=== PATIENT | female | born 1965 | race Hispanic/Latino ===

== ENCOUNTER → 2024-06-08 | Outpatient (CLI) | payer OTHER, SELFPAY ==
--- NOTE | 2024-06-08 08:57 | DI.RAD.S_ITS ---
PROCEDURE: XR KNEE LT 3V INDICATIONS: Knee pain TECHNIQUE: 3 views of the knee were acquired. COMPARISON: None. FINDINGS: Moderate degenerative changes of the left knee with joint space narrowing and osteophytes medial greater than patellofemoral greater than lateral compartments. No radiographic evidence of displaced fracture, dislocation, knee joint effusion or soft tissue foreign body. 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 Dictated by: Robert Cerda M.D. on 06/08/2024 at 12:06 Approved by: Robert Cerda M.D. on 06/08/2024 at 12:07
--- NOTE | 2024-06-08 08:57 | DI.RAD.S_ITS ---
PROCEDURE: XR HIP W PEL IF DONE LT 2V INDICATIONS: Left hip pain TECHNIQUE: 2 views of the hip were acquired. COMPARISON: None. FINDINGS / IMPRESSION: Mild degenerative changes of the bilateral hips with small osteophytes. No radiographic evidence of fracture, dislocation or high attenuation soft tissue foreign body. If symptoms persist or worsen, or there is high clinical suspicion of acute abnormality, MRI could be performed. Dictated by: Robert Cerda M.D. on 06/08/2024 at 9:59 Approved by: Robert Cerda M.D. on 06/08/2024 at 10:00
--- NOTE | 2024-06-08 09:07 | DI.MG.S_ITS ---
BILATERAL DIGITAL SCREENING MAMMOGRAM 3D/2D WITH CAD: 06/08/2024 CLINICAL: Routine screening. No prior exams were available for comparison. There are scattered areas of fibroglandular density (category b / 25%-50% glandular tissue). Current study was also evaluated with a Computer Aided Detection (CAD) system. No significant masses, calcifications, or other findings are seen in either breast. IMPRESSION: NEGATIVE There is no mammographic evidence of malignancy. A 1 year screening mammogram is recommended. Based on the Tyrer Cuzick model (a risk assessment model) the patient's lifetime risk is 8.8% and her 10 year risk is 3.2%. According to the ACR, ACS, and NCCN guidelines, an annual breast MRI exam along with mammogram is recommended if the patient's lifetime risk is 20% or greater. This exam was interpreted at Station ID: [id number]. NOTE: For mammograms, a report in lay terms will be sent to the patient. Approximately 15% of breast malignancies will not be visualized mammographically. In the management of a palpable breast mass, a negative mammogram must not discourage biopsy of a clinically suspicious lesion. Electronically Signed By: Kwabena maciel/pastor:06/14/2024 11:41:04 letter sent: Normal Exam ACR BI-RADS Category 1: Negative
[2024-06-08 10:09] LABS: Add Manual Diff / Slide Review NO; Basophils Absolute Auto 0 /uL (0-100); Basophils Percent Auto 0.8 % (0-2); Eosinophils Absolute Auto 0 /uL (0-450); Eosinophils Percent Auto 0.9 % (2-4); Hematocrit 34.4 % (36-46); Lymphocytes Absolute Auto 1600 /uL (1100-4500); Lymphocytes Percent Auto 29.7 % (25-40); Mean Corpuscular Hemoglobin 26.1 PG (26-34); Mean Corpuscular Volume 81.5 fL (80-100); Monocytes Absolute Auto 500 /uL (0-900); Monocytes Percent Auto 10.1 % (3-14); Neutrophils Absolute Auto 3100 /uL (1500-7000); Neutrophils Percent Auto 58.5 % (50-75); Platelet Count 286 X10^3/uL (150-400); Red Blood Cell Count 4.23 X10^6/uL (4.0-5.2); Red Cell Distribution Width 15.8 % (11.6-14.8); White Blood Cell Count 5.3 X10^3/uL (4.5-11.0)
[2024-06-08 10:22] LABS: Alanine Aminotransferase 29 IU/L (<35); Albumin 4.5 g/dL (3.5-5.0); Albumin Globulin Ratio 1.6 (1.0-2.8); Alkaline Phosphatase 85 U/L (38-126); Aspartate Aminotransferase 33 IU/L (14-36); BUN Creatinine Ratio 15.5 (6-22); Bilirubin Total 0.5 mg/dL (0.2-1.3); Blood Urea Nitrogen 9 mg/dL (7-17); Calcium 9.3 mg/dL (8.4-10.2); Carbon Dioxide 27 mmol/L (22-32); Chloride 102 mmol/L (98-107); Cholesterol 177 mg/dL (140-199); Estimated Glomerular Filt Rate > 60 mL/min (>60); Globulin 2.8 g/dL (1.7-4.1); Glucose 144 mg/dL (70-100); HDL Cholesterol 90 mg/dL (40-60); HEMOLYSIS < 15 (0-50); LDL Cholesterol Calculated 54 mg/dL (<100); Potassium 4.2 mmol/L (3.4-5.1); Sodium 137 mmol/L (137-145); Total Protein 7.3 g/dL (6.3-8.2); Triglycerides 164 mg/dL (35-150)
[2024-06-08 10:25] LABS: HEMOLYSIS < 15 (0-50); Iron 37 ug/dL (37-170)
[2024-06-08 10:37] LABS: Percent Iron Saturation 9 % (15-50); Total Iron Binding Capacity 434 ug/dL (265-497); Transferrin 350 mg/dL (206-381)
[2024-06-08 10:58] LABS: Ferritin 6 ng/mL (11-264); TSH w/ Reflex to FT4 0.93 uIU/mL (0.47-4.68)
[2024-06-08 11:33] LABS: Folate 9.1 ng/mL (2.76-20.0); Vitamin B12 > 1000 pg/mL (239-931)
[2024-06-09 15:35] LABS: Hemoglobin A1C% w Est Avg Glu 7.4 % (4.0-6.0)
== END ==
LOC: MAMMO 08:56
PROVIDERS: PCP Student in an Organized Health Care Education/Training Program; Referring Provider Student in an Organized Health Care Education/Training Program; Visit Provider Student in an Organized Health Care Education/Training Program
DX: M25.562 Pain in left knee (principal); M25.552 Pain in left hip; Z12.31 Encounter for screening mammogram for malignant neoplasm of breast; Z86.39 Personal history of other endocrine, nutritional and metabolic disease; Z98.84 Bariatric surgery status; R63.5 Abnormal weight gain
CPT/HCPCS: 36415; 73502; 73562; 77063; 77067; 80053; 80061; 82607; 82728; 82746; 83036; 83540; 83550; 84443; 85025

== ENCOUNTER → 2024-09-01 15:18 | Outpatient (CLI) | payer OTHER, SELFPAY ==
[2024-09-01 18:07] LABS: HEMOLYSIS < 15 (0-50)
[2024-09-01 18:10] LABS: HEMOLYSIS < 15 (0-50); Iron 53 ug/dL (37-170)
[2024-09-01 18:14] LABS: Basophils Absolute Auto 100 /uL (0-100); Basophils Percent Auto 1.1 % (0-2); Eosinophils Absolute Auto 0 /uL (0-450); Eosinophils Percent Auto 0.3 % (2-4); Hematocrit 40.6 % (36-46); Hemoglobin 13.1 g/dL (12.0-16.0); Lymphocytes Absolute Auto 2100 /uL (1100-4500); Lymphocytes Percent Auto 28.6 % (25-40); Mean Corpuscular HGB Conc 32.2 % (30-36); Mean Corpuscular Hemoglobin 30.2 PG (26-34); Mean Corpuscular Volume 93.8 fL (80-100); Monocytes Absolute Auto 600 /uL (0-900); Monocytes Percent Auto 7.8 % (3-14); Neutrophils Absolute Auto 4500 /uL (1500-7000); Neutrophils Percent Auto 62.2 % (50-75); Platelet Count 278 X10^3/uL (150-400); Red Blood Cell Count 4.33 X10^6/uL (4.0-5.2); Red Cell Distribution Width 21.2 % (11.6-14.8); White Blood Cell Count 7.2 X10^3/uL (4.5-11.0)
[2024-09-01 18:15] LABS: Add Manual Diff / Slide Review SLIDE REVIEW; Alanine Aminotransferase 35 IU/L (<35); Albumin 4.5 g/dL (3.5-5.0); Albumin Globulin Ratio 1.5 (1.0-2.8); Alkaline Phosphatase 89 U/L (38-126); Aspartate Aminotransferase 33 IU/L (14-36); BUN Creatinine Ratio 21.7 (6-22); Bilirubin Total 0.4 mg/dL (0.2-1.3); Blood Urea Nitrogen 18 mg/dL (7-17); Calcium 9.5 mg/dL (8.4-10.2); Carbon Dioxide 26 mmol/L (22-32); Chloride 105 mmol/L (98-107); Estimated Glomerular Filt Rate > 60 mL/min (>60); Globulin 3.1 g/dL (1.7-4.1); Glucose 113 mg/dL (70-100); Potassium 4.1 mmol/L (3.4-5.1); Sodium 138 mmol/L (137-145); Total Protein 7.6 g/dL (6.3-8.2)
[2024-09-01 18:24] LABS: Hemoglobin A1C% w Est Avg Glu 5.8 % (4.0-6.0); Percent Iron Saturation 21 % (15-50); Total Iron Binding Capacity 247 ug/dL (265-497); Transferrin 240 mg/dL (206-381)
[2024-09-01 18:36] LABS: Neutrophils Absolute Manual 4536 /uL (3000-5900); Total Cells Counted 100
[2024-09-01 18:37] LABS: Rouleaux 1+; Stomatocytes 1+
[2024-09-01 18:51] LABS: Ferritin 83 ng/mL (11-264)
== END ==
PROVIDERS: PCP Student in an Organized Health Care Education/Training Program; Referring Provider Student in an Organized Health Care Education/Training Program; Visit Provider Student in an Organized Health Care Education/Training Program
DX: E11.9 Type 2 diabetes mellitus without complications (principal); D64.9 Anemia, unspecified
CPT/HCPCS: 36415; 80053; 82728; 83036; 83540; 83550; 85007; 85025

== ENCOUNTER → 2024-11-17 09:17 | Outpatient (CLI) | payer OTHER, SELFPAY | PROVIDERS: PCP Student in an Organized Health Care Education/Training Program; Referring Provider Student in an Organized Health Care Education/Training Program; Visit Provider Student in an Organized Health Care Education/Training Program | DX: R00.2 Palpitations (principal) | CPT/HCPCS: 93246; 93248 ==

== ENCOUNTER → 2025-03-30 07:44 | Outpatient (CLI) | payer OTHER, SELFPAY ==
[2025-03-30 08:15] LABS: Add Manual Diff / Slide Review NO; Hematocrit 39.8 % (36-46); Hemoglobin 13.7 g/dL (12.0-16.0); Lymphocytes Absolute Auto 2100 /uL (1100-4500); Mean Corpuscular HGB Conc 34.3 % (30-36); Mean Corpuscular Hemoglobin 33.1 PG (26-34); Mean Corpuscular Volume 96.5 fL (80-100); Platelet Count 264 X10^3/uL (150-400)
[2025-03-30 08:20] LABS: Hemoglobin A1C% w Est Avg Glu 5.6 % (4.0-6.0)
[2025-03-30 08:33] LABS: Alanine Aminotransferase 34 IU/L (<35); Albumin 4.5 g/dL (3.5-5.0); Albumin Globulin Ratio 1.8 (1.0-2.8); Alkaline Phosphatase 62 U/L (38-126); Blood Urea Nitrogen 14 mg/dL (7-17); Calcium 9.2 mg/dL (8.4-10.2); Carbon Dioxide 29 mmol/L (22-32); Chloride 103 mmol/L (98-107); Estimated Glomerular Filt Rate > 60 mL/min (>60); Globulin 2.5 g/dL (1.7-4.1); Glucose 106 mg/dL (70-99); HEMOLYSIS < 15 (0-50); Potassium 4.3 mmol/L (3.4-5.1); Sodium 139 mmol/L (137-145); Total Protein 7.0 g/dL (6.3-8.2)
[2025-03-30 08:45] LABS: HEMOLYSIS < 15 (0-50); Iron 136 ug/dL (37-170)
[2025-03-30 09:00] LABS: Percent Iron Saturation 43 % (15-50); Total Iron Binding Capacity 313 ug/dL (265-497); Transferrin 269 mg/dL (206-381)
[2025-03-30 09:05] LABS: Ferritin 51 ng/mL (11-264)
== END ==
PROVIDERS: PCP Student in an Organized Health Care Education/Training Program; Referring Provider Student in an Organized Health Care Education/Training Program; Visit Provider Student in an Organized Health Care Education/Training Program
DX: D50.8 Other iron deficiency anemias (principal); E11.9 Type 2 diabetes mellitus without complications; Z86.39 Personal history of other endocrine, nutritional and metabolic disease
CPT/HCPCS: 36415; 80053; 82728; 83036; 83540; 83550; 85025

== ENCOUNTER → 2025-04-11 07:30 | Outpatient (CLI) | payer OTHER, SELFPAY ==
--- NOTE | 2025-04-11 07:32 | DI.NM.S_ITS ---
PROCEDURE: NM RYANN PERF SPECT REST & STR Rest and exercise myocardial perfusion SPECT with gated imaging and ejection fraction RADIOPHARMACEUTICAL: 12.3 mCi Tc-99m sestamibi IV at rest and 27.3 mCi Tc-99m sestamibi IV at peak exercise. A one day-protocol was performed. INDICATIONS: CHEST PAIN TECHNIQUE: Radiopharmaceutical was injected at peak stress test, and also at rest. SPECT images were obtained. SPECT myocardial perfusion images were displayed in short axis, horizontal long axis, and vertical long axis views. Gated images were reviewed using [employer] software. COMPARISON: None. CARDIAC STRESS: A standard Guillaume treadmill exercise tolerance test was performed by the patient under the supervision of an attending staff. The patient exercised for 7 minutes and 33 seconds; functional aerobic impairment (TYLER) is -9%%. Hemodynamic data: There is normal blood pressure and heart rate response to exercise stress. Patient achieved 96% of maximum predicted heart rate at peak exercise. Symptoms: Patient denied chest pain during exercise. EKG: No diagnostic EKG changes of ischemia; occasional PACs present. FINDINGS: Raw data: There is good myocardial labeling by radiotracer. No significant motion artifacts. Left ventricle function: Gated images demonstrate normal left ventricle wall thickening. No segmental wall motion abnormality. No transient ischemic dilation; TID is 0.81 (normal less than 1.3). The left ventricle resting end-diastolic volume is 91mL. Left ventricle stress ejection fraction is 76%; normal values are above 45%. Myocardial perfusion: There is normal distribution of activity in the left and right ventricular myocardium. No fixed or reversible perfusion defects. IMPRESSION: Low risk, normal treadmill nuclear stress test from inducible ischemia standpoint. 1) No perfusion evidence of ischemia or infarction. 2) Normal left ventricular size, wall motion, and systolic function (EF post stress 76%). 3) No diagnostic ST changes during exercise or recovery. 4) No angina during the study. 5) Above average exercise tolerance (10.1METs, TYLER -9%). Target heart rate reached. Appropriate BP response to exercise. 6) No prior nuclear stress test available for comparison. Dictated by: Deborah Meyer MD on 04/11/2025 at 16:59 Approved by: Deborah Meyer MD on 04/11/2025 at 17:02
--- NOTE | 2025-04-11 07:33 | DI.ECHO.S_ITS ---
[facility]---------+ [facility] : : [id number] : : [place] : : [id number] : : Phone: [phone] Echocardiogram Report + + :Name: DAO GREGORY Study Date: 04/11/2025 Height: 64.5 in: :[facility] ReadingLocation: Weight: 181 lb : : Gender: Female BSA: 1.9 m2 : :: 1965 Age: 60 yrs BP: 138/85 mmHg: :Reason For Study: CHEST PAIN : :Ordering Physician: SUNI, : :MICKIE Lantigua Performed By: Ayanna Escobedo : :Referring: MICKIE GALLEGO : + + Interpretation Summary The ejection fraction is estimated to be 55-60%. Normal diastolic function. The right ventricle is mildly dilated. The right ventricular systolic function is normal. There is mild tricuspid regurgitation. The right ventricular systolic pressure is estimated to be at least 28 mmHg based on an estimated right atrial pressure of 3 mm Hg. Procedure: A two-dimensional transthoracic echocardiogram with color flow and Doppler was performed. The study quality was technically adequate. There is no prior echocardiogram noted for this patient. The patient was in sinus bradycardia with heart rates between 51-63 bpm during the exam. Left Ventricle: The left ventricle is normal in size and wall thickness. The ejection fraction is estimated to be 55-60%. Normal diastolic function. Right Ventricle: The right ventricle is mildly dilated. The right ventricular systolic function is normal. Atria: The left atrial size is normal. Right atrial size is normal. There is no Doppler evidence for an interatrial shunt. Mitral Valve: The mitral valve leaflets appear to open well. There is trace mitral regurgitation. Aortic Valve: The aortic valve is trileaflet. The aortic valve opens well. There is no aortic valve stenosis. There is no aortic regurgitation. Tricuspid Valve: The tricuspid valve leaflets are thin and pliable. There is mild tricuspid regurgitation. The right ventricular systolic pressure is estimated to be at least 28 mmHg based on an estimated right atrial pressure of 3 mm Hg. Pulmonic Valve: The pulmonic valve leaflets are thin and pliable; valve motion is normal. There is no pulmonic valvular regurgitation. Great Vessels: The aortic root is normal size. The dimensions of the ascending aorta are normal. The IVC is of normal diameter and collapses greater than 50% with a sniff. This suggests a low right atrial pressure of 3 mm Hg. Pericardium/ Pleura There is no pericardial effusion. There is no pleural effusion. MMode/2D Measurements & Calculations LVIDd: 4.5 cm LVOT diam: 2.0 cm LVIDs: 3.1 cm Ao root diam: 2.5 cm FS: 32.3 % asc Aorta Diam: 2.8 cm EPSS: 0.56 cm Ao Arch Diam (Prox Trans): 2.6 cm IVSd: 0.87 cm LVPWd: 0.86 cm LV chen. diameter/BSA (cm/m^2): 2.4 LV sys. diameter/BSA (cm/m^2): 1.6 LA A2 area: 19.7 cm2 RA long axis: 5.3 cm LA A4 area: 19.2 cm2 RA area: 18.7 cm2 LA length (vol): 5.4 cm RA vol: 56.0 ml LA vol: 58.8 ml RA : 29.6 ml/m2 LA vol index: 31.2 ml/m2 IVC diam: 1.7 cm RVD1 (basal): 4.3 cm RVD2 (mid): 4.2 cm TAPSE: 1.9 cm Doppler Measurements & Calculations Ao V2 max: 142.1 cm/sec LVOT Max Valentin: 89.3 cm/sec Ao V2 mean: 102.5 cm/sec LV V1 max P.2 mmHg Ao max P.1 mmHg LV V1 VTI: 21.4 cm Ao mean P.6 mmHg CHARO(I,D): 2.0 cm2 Ao V2 VTI: 34.4 cm CHARO(V,D): 2.0 cm2 sev ratio: 0.62 CHARO indexed to BSA (cm^2/m^2): 1.0 MV E max valentin: 65.2 cm/sec TR max valentin: 244.3 cm/sec MV A max valentin: 71.6 cm/sec TR max P.9 mmHg MV E/A: 0.91 PA V2 max: 97.3 cm/sec Med Peak E' Valentin: 8.5 cm/sec PA V2 mean: 68.9 cm/sec E/E' med: 7.6 PA mean P.1 mmHg Lat Peak E' Valentin: 10.5 cm/sec PA pr(Accel): 25.9 mmHg E/E' lat: 6.2 E/e' average: 6.9 MV dec time: 0.24 sec SV(OT): 67.4 ml Reading Physician:04:26 PM
== END ==
LOC: NUCM 07:31
PROVIDERS: PCP Student in an Organized Health Care Education/Training Program; Referring Provider Student in an Organized Health Care Education/Training Program; Visit Provider Internal Medicine Cardiovascular Disease
DX: I07.1 Rheumatic tricuspid insufficiency (principal); R07.9 Chest pain, unspecified
CPT/HCPCS: 78452; 93017; 93306; A9502